=== PATIENT | female | born 1980 | race African-American/Black ===

== ENCOUNTER 2016-05-27 19:55 | Emergency (ER) | payer MEDICAID ==
[~2016-05-27] VITALS: Ht 170.2 cm; Wt 56.7 kg
[~2016-05-27 19:55] MED LIST: ALBUTEROL SULF8.5 GM INH; PREDNISONE20 MG ORAL; VENTOLIN HFA18 GM INH
[2016-05-27] MEDS ORDERED: Albuterol ud Inhalation HHN ONE ×2 (20:30→21:15)
[2016-05-27] MEDS ORDERED: PredniSONE 20mg tab ORAL ONE (20:30)
[2016-05-27] MEDS ORDERED: Ipratropium 0.02% Inh Soln 2.5ml UD HHN ONE (20:30)
[2016-05-27 21:30] VITALS: BP 124/75
[2016-05-27] MEDS ORDERED: Acetaminophen 500mg (ES) tab ORAL ONE (22:15)
--- NOTE | 2016-05-27 22:18 | Emergency Room Report ---
History of Present Illness General Chief Complaint: Dyspnea/Respdistress Source: Patient Present Illness HPI Patient has a history of asthma. She states that she has had URI symptoms for the past daily. She states over the past 24 hours her asthma has been out of control. She states that she has been using her albuterol inhaler without relief. She has had congestion and sputum production. She denies fever or chills. She does have chest pain with coughing. She has no other complaints. Allergies: Coded Allergies: No Known Allergies (Unverified , 03/20/16) Patient History Past Medical History: see triage record, asthma Social History: Denies: alcohol use, drug use, smoking Last Menstrual Period: 05/27/16 Now: No Reviewed Nursing Documentation: PMH: Agreed, PSxH: Agreed Nursing Documentation-PMH Hx Asthma: Yes Review of Systems All Other Systems: negative except mentioned in HPI Physical Exam Vital Signs Date Time Temp Pulse Resp B/P Pulse Ox O2 Delivery O2 Flow Rate FiO2 05/27/16 20:00 98.1 84 22 118/64 96 Room Air Sp02 EP Interpretation: reviewed, normal General Appearance: no apparent distress, alert, GCS 15, non-toxic Head: normocephalic, atraumatic Eyes: bilateral eye PERRL, bilateral eye normal inspection ENT: hearing grossly normal, normal pharynx, no angioedema, normal voice Neck: full range of motion, supple/symm/no masses Respiratory: chest non-tender, no respiratory distress, no retraction, no accessory muscle use, speaking full sentences, wheezing, expiration Cardiovascular #1: regular rate, rhythm, no edema Gastrointestinal: normal bowel sounds, non tender, soft, non-distended, no guarding, no rebound Rectal: deferred Musculoskeletal: back normal, gait/station normal, normal range of motion, non- tender Neurologic: alert, oriented x3, responsive, motor strength/tone normal, sensory intact, speech normal Psychiatric: judgement/insight normal, memory normal, mood/affect normal, no suicidal/homicidal ideation Skin: normal color, no rash, warm/dry, well hydrated Medical Decision Making Diagnostic Impression: Primary Impression: Asthma ER Course This patient has a clinical presentation consistent with asthma exacerbation. Patient has a history of asthma and has wheezing on physical exam. The patient was given albuterol and Atrovent nebulizer treatments. The patient was also given prednisone orally. The patient had significant improvement in subjective shortness of breath. The patient's lung exam improved significantly. I will also treat the patient with a course of antibiotics as this has been shown to improve the course of an asthma exacerbation. The patient was given close return precautions and followup instructions. Last Vital Signs Date Time Temp Pulse Resp B/P Pulse Ox O2 Delivery O2 Flow Rate FiO2 05/27/16 21:38 123 23 100 05/27/16 21:30 98.0 124/75 Room Air Status: improved Disposition: HOME, SELF-CARE Condition: Improved Referrals: [facility]ERR[facility] (PCP) JEROMY PALMER D.O. May 27, 2016 22:18
[2016-05-27] MEDS ORDERED: ZITHROMAX250 MG ORAL (22:36)
[2016-05-27] MEDS ORDERED: PREDNISONE20 MG ORAL (22:36)
[2016-05-27] MEDS ORDERED: ALBUTEROL2.5 MG/3 M HHN (22:36)
[2016-05-27] MEDS ORDERED: ALBUTEROL SULF8.5 GM INH (22:36)
[2016-05-27 22:45] VITALS: BP 113/65
== END 2016-05-27 22:50 | disposition home or self-care (01) ==
LOC: EMR 20:50
DX: J45.909 Unspecified asthma, uncomplicated (principal)
CPT/HCPCS: 94640; 94664; 99283

== ENCOUNTER 2016-08-14 05:54 | Emergency (ER) | payer MEDICAID ==
[~2016-08-14] VITALS: Ht 170.2 cm; Wt 56.7 kg
[~2016-08-14 05:54] MED LIST changes: +ALBUTEROL2.5 MG/3 M HHN; +ZITHROMAX250 MG ORAL
[2016-08-14 05:58] VITALS: BP 98/78
[2016-08-14] MEDS ORDERED: Ipratropium 0.02% Inh Soln 2.5ml UD HHN ONE (06:00)
[2016-08-14] MEDS ORDERED: Solu-MEDROL 125mg Inj IVP ONE (06:00)
[2016-08-14] MEDS ORDERED: Albuterol ud Inhalation HHN ONE (06:00)
[2016-08-14] MEDS ORDERED: PREDNISONE20 MG ORAL (06:37)
[2016-08-14] MEDS ORDERED: ALBUTEROL SULF8.5 GM INH (06:37)
[2016-08-14] MEDS ORDERED: DULERA 200 MCG/13 GM IH (06:39)
--- NOTE | 2016-08-14 06:39 | Emergency Room Report ---
History of Present Illness General Chief Complaint: Dyspnea/Respdistress Source: Patient Present Illness HPI Is a 35-year-old female with history of asthma. Is well-controlled when she was in [place] now since she grew back to [place] his been having more asthma attack. Only using albuterol. She's been having for asthma exacerbation. Worse the last few days. Her inhaler is not helping. Denies any fever chills denies any nausea vomiting. Coughing with whitish sputum. Allergies: Coded Allergies: No Known Allergies (Unverified , 03/20/16) Patient History Past Medical History: see triage record, old chart reviewed, asthma Past Surgical History: none Pertinent Family History: none Social History: Denies: smoking - quit last month Last Menstrual Period: 08/11/16 Now: No : 1 Para: 1 Immunizations: other Reviewed Nursing Documentation: PMH: Agreed, PSxH: Agreed Nursing Documentation-PMH Hx Asthma: Yes Review of Systems Eye: Denies: blurred vision, eye pain ENT: Denies: ear pain, nose congestion, throat swelling Respiratory: Reports: shortness of breath, wheezing, Denies: cough Cardiovascular: Denies: chest pain, palpitations Gastrointestinal: Denies: abdominal pain, diarrhea, nausea, vomiting Musculoskeletal: Denies: back pain, joint pain Skin: Denies: rash Neurological: Denies: headache, numbness Endocrine: Denies: increased thirst, increased urine Hematologic/Lymphatic: Denies: easy bruising All Other Systems: negative except mentioned in HPI Physical Exam Vital Signs Date Time Temp Pulse Resp B/P Pulse Ox O2 Delivery O2 Flow Rate FiO2 08/14/16 05:58 97.9 79 20 98/78 100 Room Air vitals unremarkable. Sp02 EP Interpretation: reviewed, normal General Appearance: well appearing, alert, mild distress Head: normocephalic, atraumatic Eyes: bilateral eye EOMI, bilateral eye PERRL ENT: hearing grossly normal, normal pharynx Neck: full range of motion, supple, no meningismus Respiratory: chest non-tender, accessory muscle use, wheezing Cardiovascular #1: regular rate, rhythm, no murmur Gastrointestinal: normal bowel sounds, non tender, no mass, no organomegaly, no bruit, non-distended Musculoskeletal: back normal, gait/station normal, normal range of motion Neurologic: alert, oriented x3 Psychiatric: mood/affect normal Skin: warm/dry Medical Decision Making Diagnostic Impression: Primary Impression: Asthma with exacerbation Qualified Codes: J45.41 - Moderate persistent asthma with (acute) exacerbation ER Course Patient with asthma exacerbation. She cleared after treatment. No evidence of pneumonia. No evidence of CHF. No evidence of PE. She will probably benefit from a steroid inhaler. We'll discharge home. EKG Diagnostic Results Rate: normal Rhythm: NSR ST Segments: no acute changes Rhythm Strip Diag. Results EP Interpretation: yes Rate: 70 Rhythm: NSR, no PVC's, no ectopy Last Vital Signs Date Time Temp Pulse Resp B/P Pulse Ox O2 Delivery O2 Flow Rate FiO2 08/14/16 06:04 77 20 100 Room Air 08/14/16 05:58 97.9 98/78 Status: improved Disposition: HOME, SELF-CARE Condition: Stable Scripts Mometasone/Formoterol (DULERA 200 MCG/5 MCG INHALER) 13 Gm Hfa.aer.ad 13 GM IH DAILY, #1 UNIT Prov: PEPE JOHNSON M.D. 08/14/16 Prednisone* (PREDNISONE*) 20 Mg Tablet 60 MG ORAL DAILY, #15 TAB Prov: PEPE JOHNSON M.D. 08/14/16 Albuterol Sulfate* (ALBUTEROL SULFATE MDI*) 8.5 Gm Hfa.aer.ad 2 PUFF INH Q4H Y for cough/wheezing, #1 EA 0 Refills Prov: PEPE JOHNSON M.D. 08/14/16 Additional Instructions: Followup with your DrNick in 2-3 days. Return if symptom worsen. PEPE JOHNSON M.D. Aug 14, 2016 06:39
[2016-08-14 06:45] VITALS: BP 110/78
--- NOTE | 2016-08-15 18:33 | Cardiology Report ---
APPROVED REPORT EKG Measurement Heart [id number] Normal sinus rhythm Normal ECG
== END 2016-08-14 06:51 | disposition home or self-care (01) ==
LOC: EMR 06:15
DX: J45.901 Unspecified asthma with (acute) exacerbation (principal)
CPT/HCPCS: 93005; 94640; 94664; 96374; 99284; J2930

== ENCOUNTER 2017-04-09 09:25 | Emergency (ER) | payer MEDICAID ==
[~2017-04-09] VITALS: Ht 170.2 cm; Wt 56.7 kg
[~2017-04-09 09:25] MED LIST changes: +DULERA 200 MCG/13 GM IH
--- NOTE | 2017-04-09 09:50 | Emergency Room Report ---
History of Present Illness General Chief Complaint: Abdominal Pain Source: Patient Present Illness HPI This is a 28-year-old female presented after increased lower bowel pain and cramping. A computed present for 3 days. She denied vomiting. She reports having increased dysuria. The patient states that she had not been bleeding. She had regular menses approximately 3 weeks ago. She denies any fever. She denies vaginal discharge. Patient states that she has no prior abdominal surgery. The patient has prior history of asthma but denies any current symptoms Allergies: Coded Allergies: No Known Allergies (Unverified , 03/20/16) Patient History Last Menstrual Period: 03/16/2017 Reviewed Nursing Documentation: PMH: Agreed, PSxH: Agreed Nursing Documentation-PMH Past Medical History: No History, Except For Hx Asthma: Yes Review of Systems All Other Systems: negative except mentioned in HPI Physical Exam Vital Signs Date Time Temp Pulse Resp B/P (MAP) Pulse Ox O2 Delivery O2 Flow Rate FiO2 04/09/17 09:33 98.1 73 14 92/54 100 Room Air Sp02 EP Interpretation: reviewed, normal General Appearance: normal inspection, well appearing, no apparent distress, alert, GCS 15, non-toxic Head: atraumatic ENT: normal ENT inspection, hearing grossly normal, normal voice Neck: normal inspection, full range of motion, supple, no bony tend Respiratory: normal inspection, lungs clear, normal breath sounds, no respiratory distress, no retraction, no wheezing Cardiovascular #1: regular rate, rhythm, no edema Gastrointestinal: normal inspection, normal bowel sounds, non tender, soft, no guarding, no hernia Genitourinary: no CVA tenderness Musculoskeletal: normal inspection, back normal, normal range of motion Neurologic: normal inspection, alert, oriented x3, responsive, promotions representative III-XII nml as tested, speech normal Psychiatric: normal inspection, judgement/insight normal, mood/affect normal Skin: normal inspection, normal color, no rash Medical Decision Making Diagnostic Impression: Primary Impression: Abdominal pain ER Course Patient presented for abdominal pain. Differential diagnoses included ischemic bowel, appendicitis, perforated viscus, abdominal aortic aneurysm, inferior myocardial infarction, viral gastroenteritis Patient's benign exam and does not appear to require any further imaging or laboratory testing at this time. The patient is advised to follow up with primary care doctor in 1-2 days. Patient is advised to return if any worsening condition or if any changes in status that are concerning. Labs Test 04/09/17 09:45 Urine Color Pale yellow Urine Appearance Clear Urine pH 6 (4.5-8.0) Urine Specific [place] 1.015 (1.005-1.035) Urine Protein Negative (NEGATIVE) Urine Glucose (UA) Negative (NEGATIVE) Urine Ketones Negative (NEGATIVE) Urine Occult Blood Negative (NEGATIVE) Urine Nitrite Negative (NEGATIVE) Urine Bilirubin Negative (NEGATIVE) Urine Urobilinogen Normal MG/DL (0.0-1.0) Urine Leukocyte Esterase Negative (NEGATIVE) Urine HCG, Qualitative Negative Last Vital Signs Date Time Temp Pulse Resp B/P (MAP) Pulse Ox O2 Delivery O2 Flow Rate FiO2 04/09/17 09:33 98.1 73 14 92/54 100 Room Air Status: improved Disposition: HOME, SELF-CARE Condition: Stable Scripts Lidocaine (Lidocaine) 1 Each Adh..patch 700 MG TP DAILY, #7 PATCH Prov: Estevan Flores 04/09/17 Estevan Flores Apr 09, 2017 09:50
[2017-04-09 09:55] VITALS: BP 115/70
[2017-04-09 10:09] LABS: APPEARANCE,URINE CLEAR; KETONES,URINE NEGATIVE (NEGATIVE); LEUKOCYTE ESTERASE ,URINE NEGATIVE (NEGATIVE); NITRITE,URINE NEGATIVE (NEGATIVE); PH,URINE 6 (4.5-8.0); PROTEIN,URINE NEGATIVE (NEGATIVE); UROBILINOGEN,URINE NORMAL MG/DL (0.0-1.0)
[2017-04-09] MEDS ORDERED: Dicyclomine HCl 10mg/5ml oral soln ORAL ONE (11:00)
[2017-04-09] MEDS ORDERED: LIDOCAINE700 M1 TP (11:12)
[2017-04-09 11:32] VITALS: BP 115/70
== END 2017-04-09 11:57 | disposition home or self-care (01) ==
LOC: EMR 10:12
DX: R10.30 Lower abdominal pain, unspecified (principal); J45.909 Unspecified asthma, uncomplicated
CPT/HCPCS: 81003; 81025; 99283

== ENCOUNTER 2017-08-02 04:24 | Emergency (ER) | payer MEDICAID ==
[~2017-08-02] VITALS: Ht 170.2 cm; Wt 59.0 kg
[~2017-08-02 04:24] MED LIST changes: +LIDOCAINE700 M1 TP
[2017-08-02 04:42] VITALS: BP 106/63
[2017-08-02] MEDS ORDERED: Albuterol/Ipratropium 3ml neb HHN ONE (04:45)
--- NOTE | 2017-08-02 04:51 | Emergency Room Report ---
History of Present Illness General Chief Complaint: Dyspnea/Respdistress Source: Patient Present Illness HPI Is a 36-year-old female with a history of asthma with frequent hospital visits for asthma exacerbation and also admission. Never been intubated. Patient presents with chief complaint of shortness of breath. Onset today. Increase use of Advair inhaler without much relief. No nausea no vomiting. No fever chills. Worse with exertion. No chest pain. Allergies: Coded Allergies: No Known Allergies (Unverified , 03/20/16) Patient History Past Medical History: see triage record, old chart reviewed, asthma Past Surgical History: none Pertinent Family History: none Social History: Denies: smoking Last Menstrual Period: 3 days ago Now: No Immunizations: other Reviewed Nursing Documentation: PMH: Agreed, PSxH: Agreed Nursing Documentation-PMH Hx Asthma: Yes Review of Systems Eye: Denies: eye pain, blurred vision ENT: Denies: ear pain, nose congestion, throat swelling Respiratory: Reports: shortness of breath, wheezing, Denies: cough Cardiovascular: Denies: chest pain, palpitations Gastrointestinal: Denies: abdominal pain, diarrhea, nausea, vomiting Musculoskeletal: Denies: back pain, joint pain Skin: Denies: rash Neurological: Denies: headache, numbness Endocrine: Denies: increased thirst, increased urine Hematologic/Lymphatic: Denies: easy bruising All Other Systems: negative except mentioned in HPI Physical Exam Vital Signs Date Time Temp Pulse Resp B/P (MAP) Pulse Ox O2 Delivery O2 Flow Rate FiO2 08/02/17 04:27 97.6 76 18 106/63 97 Room Air 97.5 vitals normal Sp02 EP Interpretation: reviewed, normal General Appearance: well appearing, no apparent distress, alert, mild distress Head: normocephalic, atraumatic Eyes: bilateral eye PERRL, bilateral eye EOMI ENT: hearing grossly normal, normal pharynx Neck: full range of motion, supple, no meningismus Respiratory: chest non-tender, respiratory distress, decreased breath sounds, accessory muscle use, wheezing Cardiovascular #1: regular rate, rhythm, no murmur Gastrointestinal: normal bowel sounds, non tender, no mass, no organomegaly, no bruit, non-distended Musculoskeletal: back normal, gait/station normal, normal range of motion Psychiatric: mood/affect normal Skin: warm/dry Medical Decision Making Diagnostic Impression: Primary Impression: Asthma with exacerbation Qualified Codes: J45.901 - Unspecified asthma with (acute) exacerbation ER Course Patient with an asthma exacerbation. She cleared after breathing treatment and steroid. Said she is back to baseline. No evidence of PE, ACS, pneumonia to name a few. We'll discharge home. Last Vital Signs Date Time Temp Pulse Resp B/P (MAP) Pulse Ox O2 Delivery O2 Flow Rate FiO2 08/02/17 04:46 63 18 Room Air 08/02/17 04:45 99 08/02/17 04:42 97.5 106/63 97.5 Status: improved Disposition: HOME, SELF-CARE Condition: Stable Scripts Prednisone* (PREDNISONE*) 20 Mg Tablet 60 MG ORAL DAILY, #12 TAB Prov: PEPE JOHNSON M.D. 08/02/17 Albuterol Sulfate* (ALBUTEROL SULFATE MDI*) 8.5 Gm Hfa.aer.ad 2 PUFF INH Q4H Y for cough/wheezing, #1 EA 0 Refills Prov: PEPE JOHNSON M.D. 08/02/17 Additional Instructions: Follow-up with your DrNick in 2 to 3 days. Return if symptom worsen. PEPE JOHNSON M.D. Aug 02, 2017 04:51
[2017-08-02] MEDS ORDERED: PREDNISONE20 MG ORAL (05:34)
[2017-08-02] MEDS ORDERED: ALBUTEROL SULF8.5 GM INH (05:34)
[2017-08-02 05:45] VITALS: BP 106/63
== END 2017-08-02 05:45 | disposition home or self-care (01) ==
LOC: EMR 05:00
DX: J45.901 Unspecified asthma with (acute) exacerbation (principal)
CPT/HCPCS: 94640; 94664; 99284; J7512; J7620

== ENCOUNTER 2018-07-16 05:36 | Emergency (ER) | payer MEDICAID ==
[~2018-07-16] VITALS: Ht 170.2 cm; Wt 59.0 kg
[2018-07-16] MEDS ORDERED: Ipratropium 0.02% Inh Soln 2.5ml UD HHN ONE (05:45)
[2018-07-16] MEDS ORDERED: Solu-MEDROL 125mg Inj IVP ONE (05:45)
[2018-07-16] MEDS ORDERED: Albuterol ud Inhalation HHN ONE (05:45)
[2018-07-16 06:00] VITALS: BP 145/95
--- NOTE | 2018-07-16 06:35 | Emergency Room Report ---
History of Present Illness General Chief Complaint: Asthma Source: Patient Present Illness HPI Is a 37-year-old female with a history of asthma. Is usually well controlled. Patient presents with chief complaint short of breath and wheezing. She woke up with it. Nothing made it better. Her inhaler did not make it any better. Exertion and inspiration makes it worse. Denies fever or chills. Because of her coughing and wheezing she has some tightness to her left chest. Sharp pain. Worse with coughing. No radiation. EMS gave her breathing treatment. Allergies: Coded Allergies: No Known Allergies (Unverified , 03/20/16) Patient History Past Medical History: see triage record, old chart reviewed, asthma Past Surgical History: none Pertinent Family History: none Social History: Reports: drug use - Marijuana; Denies: smoking Last Menstrual Period: Jun 29 2018 Now: No Immunizations: other Reviewed Nursing Documentation: PMH: Agreed; PSxH: Agreed Nursing Documentation-PMH Hx Asthma: Yes Review of Systems Eye: Denies: eye pain, blurred vision ENT: Denies: ear pain, nose congestion, throat swelling Respiratory: Reports: cough, shortness of breath, wheezing Cardiovascular: Reports: chest pain; Denies: palpitations Gastrointestinal: Denies: abdominal pain, diarrhea, nausea, vomiting Musculoskeletal: Denies: back pain, joint pain Skin: Denies: rash Neurological: Denies: headache, numbness Endocrine: Denies: increased thirst, increased urine Hematologic/Lymphatic: Denies: easy bruising All Other Systems: negative except mentioned in HPI Physical Exam Vital Signs Date Time Temp Pulse Resp B/P (MAP) Pulse Ox O2 Delivery O2 Flow Rate FiO2 07/16/18 05:39 98.1 108 22 145/95 100 Simple Mask 07/16/18 05:45 21 vitals with tachycardia Sp02 EP Interpretation: reviewed, normal General Appearance: well appearing, no apparent distress, alert Head: normocephalic, atraumatic Eyes: bilateral eye PERRL, bilateral eye EOMI ENT: hearing grossly normal, normal pharynx Neck: full range of motion, supple, no meningismus Respiratory: chest non-tender, respiratory distress - mild, decreased breath sounds, accessory muscle use, wheezing Cardiovascular #1: regular rate, rhythm, no murmur Gastrointestinal: normal bowel sounds, non tender, no mass, no organomegaly, no bruit, non-distended Musculoskeletal: back normal, gait/station normal, normal range of motion Psychiatric: mood/affect normal Skin: warm/dry Medical Decision Making Diagnostic Impression: Primary Impression: Asthma attack Qualified Codes: J45.21 - Mild intermittent asthma with (acute) exacerbation ER Course Patient presents with asthma exacerbation. She felt much better now after breathing treatment and steroid. No evidence of ACS, PE, dissection to name a few. We'll discharge home. Chest X-Ray Diagnostic Results Chest X-Ray Diagnostic Results : Chest X-Ray Ordered: Yes # of Views/Limited/Complete: 1 View Indication: Shortness of Breath EP Interpretation: Yes Interpretation: no consolidation, no effusion, no pneumothorax, no acute cardiopulmonary disease Impression: No acute disease Electronically Signed by: Ever Yang MD Last Vital Signs Date Time Temp Pulse Resp B/P (MAP) Pulse Ox O2 Delivery O2 Flow Rate FiO2 07/16/18 06:11 84 20 100 Room Air 21 07/16/18 05:39 98.1 145/95 Status: improved Disposition: HOME, SELF-CARE Condition: Stable Scripts Prednisone* (PREDNISONE*) 20 Mg Tablet 40 MG ORAL DAILY, #8 TAB Prov: Ever Yang MD 07/16/18 Referrals: [facility],REFERRING (PCP) Patient Instructions: Asthma, Adult Additional Instructions: Follow-up with your in 2-3 days. Return if symptom worsen. Ever Yang MD Jul 16, 2018 06:35
[2018-07-16] MEDS ORDERED: PREDNISONE20 MG ORAL (06:39)
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
[2018-07-16] MEDS ORDERED: Morphine Sulfate 2mg/ml Inj(IV/IM USE ONLY) IM ONE (06:45)
[2018-07-16] MEDS ORDERED: ALBUTEROL SULF8.5 GM INH (07:11)
[2018-07-16 07:16] VITALS: BP 145/95
--- NOTE | 2018-07-16 09:08 | Diagnostic Imaging Report ---
Indication: Shortness of breath Technique: One view of the chest Comparison: none Findings: Lungs and pleural spaces are clear. Heart size is normal Impression: No acute process
== END 2018-07-16 07:17 | disposition home or self-care (01) ==
LOC: EDBD 05:36 → EDUNIT# 05:36 → EMR 06:12
DX: J45.21 Mild intermittent asthma with (acute) exacerbation (principal)
CPT/HCPCS: 71045; 94640; 94664; 96372; 96374; 99284; J2270; J7512

== ENCOUNTER 2018-11-15 11:48 | Emergency (ER) | payer MEDICAID ==
[~2018-11-15] VITALS: Ht 170.2 cm; Wt 61.2 kg
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
[2018-11-15 12:20] VITALS: BP 112/68
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
[2018-11-15] MEDS ORDERED: NAPROXEN500 M2 ORAL (12:28)
[2018-11-15] MEDS ORDERED: ROBAXIN500 MG PO (12:28)
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
[2018-11-15 12:44] VITALS: BP 112/68
--- NOTE | 2018-11-15 12:46 | NUR ---
ER DISCHARGE NOTE: Patient is cleared to be discharged per ERMD, pt is aox4, on room air, with stable vital signs. pt was given dc and prescription instructions, pt was able to verbalize understanding, pt is able to ambulate with steady gait. pt took all belongings.
== END 2018-11-15 12:35 | disposition home or self-care (01) ==
LOC: EMR 12:17
DX: S16.1XXA Strain of muscle, fascia and tendon at neck level, initial encounter (principal); V43.62XA Car passenger injured in collision with other type car in traffic accident, initial encounter; Y92.410 Unspecified street and highway as the place of occurrence of the external cause
CPT/HCPCS: 99282

== ENCOUNTER 2019-07-03 21:40 | Emergency (ER) | payer MEDICAID ==
[~2019-07-03] VITALS: Ht 167.6 cm; Wt 59.0 kg
[~2019-07-03 21:40] MED LIST changes: +NAPROXEN500 M2 ORAL; +ROBAXIN500 MG PO
[2019-07-03 21:56] VITALS: BP 105/73
--- NOTE | 2019-07-03 21:56 | NUR ---
ED Nurse Note: Pt walked in to ED c/o asthma exacerbation today at 2100. Stated she forgot her inhaler. Able to speak 1-2 word sentences. 98% RA.
--- NOTE | 2019-07-03 21:58 | NUR ---
ED Nurse Note: RT at bedside for breathing tx.
[2019-07-03] MEDS: Ipratropium 0.02% Inh Soln 2.5ml UD HHN SCH ×3 (22:03→22:30)
[2019-07-03] MEDS: Albuterol ud Inhalation HHN SCH ×3 (22:03→22:30)
[2019-07-03] MEDS ORDERED: ALBUTEROL SULF8.5 GM INH (22:46)
[2019-07-03] MEDS ORDERED: PREDNISONE20 MG ORAL (22:46)
[2019-07-03 22:55] VITALS: BP 105/73
--- NOTE | 2019-07-03 22:55 | NUR ---
ED Nurse Note: Pt cleared by ERMD for discharge. DC instructions/prescription was given and explained to pt and verbalized understanding of teachings. All medical deviecs such as ID band removed. Pt is AAO x4, ambulatory and left with all personal belongings.
--- NOTE | 2019-07-04 03:52 | Emergency Room Report ---
History of Present Illness General Chief Complaint: Asthma Source: Patient Present Illness HPI 38-year-old female presents ED for evaluation. Complaining of shortness of breath since last night. History of asthma. Cannot find her inhaler. Denies cough. Denies fevers or chills. Denies smoking. No other aggravating relieving factors. Denies any other associated symptoms Allergies: Coded Allergies: No Known Allergies (Unverified , 03/20/16) Patient History Past Medical History: asthma Past Surgical History: none Pertinent Family History: none Social History: Denies: smoking, alcohol use, drug use Last Menstrual Period: 06/27/19 Now: No Immunizations: UTD Reviewed Nursing Documentation: PMH: Agreed; PSxH: Agreed Nursing Documentation-PMH Past Medical History: No History, Except For Hx Asthma: Yes Review of Systems All Other Systems: negative except mentioned in HPI Physical Exam Vital Signs Date Time Temp Pulse Resp B/P (MAP) Pulse Ox O2 Delivery O2 Flow Rate FiO2 07/03/19 21:48 97.9 88 30 105/73 (84) 100 Room Air 07/03/19 22:03 21 Sp02 EP Interpretation: reviewed, normal General Appearance: alert, GCS 15, non-toxic, mild distress Head: normocephalic, atraumatic Eyes: bilateral eye normal inspection, bilateral eye PERRL ENT: hearing grossly normal, normal pharynx, no angioedema, normal voice Neck: full range of motion, supple/symm/no masses Respiratory: chest non-tender, lungs clear, decreased breath sounds, speaking full sentences, wheezing Cardiovascular #1: regular rate, rhythm, no edema Cardiovascular #2: 2+ carotid (R), 2+ carotid (L), 2+ radial (R), 2+ radial (L) , 2+ dorsalis pedis (R), 2+ dorsalis pedis (L) Gastrointestinal: normal bowel sounds, non tender, soft, non-distended, no guarding, no rebound Rectal: deferred Genitourinary: normal inspection, no CVA tenderness Musculoskeletal: back normal, normal range of motion, gait/station normal, non- tender Neurologic: alert, motor strength/tone normal, oriented x3, sensory intact, responsive, speech normal Psychiatric: judgement/insight normal, memory normal, mood/affect normal, no suicidal/homicidal ideation Reflexes: 3+ bicep (R), 3+ bicep (L), 3+ tricep (R), 3+ tricep (L), 3+ knee (R) , 3+ knee (L) Skin: no rash Lymphatic: no adenopathy Procedures Critical Care Time Critical Care Time i. I feel this is a highly complex case requiring extensive working including EKG/Rhythm strip, Xray/CT/US, Blood/urine lab work, repeat exams while in ED, and administration of strong opiates/narcotics for pain control, admission to hospital or close patient follow up. Total time: 30 min bedside evaluation and treatment excludes procedures (EKG). Reason for critical care: tachypnea, wheezing Possible complications: hypotension, hypertension, MA, shock, arrhythmias, metabolic acidosis, end organ damage, respiratory failure. Interventions: nebulizer treatments, prednisone Course: Patient presenting with shortness of breath. Asthma. Tachypneic. Patient started on breathing treatments, prednisone. Patient observed with close assessments. On reassessment breathing improved. Wheezing resolved. Tachypnea resolved. Will discharge home. Consultations: nursing staff, EMS, family Performed by: Dr Starr Tolerated well condition = stable j. because of unstable vital signs this patient had a condition that could potentially threaten life or limb. I feel this is a critical patient who required my full attention while patient was considered critical. Total Critical Care Time excluding procedures was greater than 35 minutes Medical Decision Making Diagnostic Impression: Primary Impression: Asthma attack Qualified Codes: J45.901 - Unspecified asthma with (acute) exacerbation ER Course Hospital Course 38-year-old female presents to ED complaining of SOB, wheezing Differential diagnoses include: URI, bronchitis, asthma/COPD, pneumonia Clinical course Patient placed on stretcher. After initial history, physical exam reveals a female in mild distress. Bilateral TM unremarkable. No pharyngeal erythema. No tonsillar exudates. No lymphadenopathy. wheezing noted on exam. 1-2 word sentences. Tachypneic. Patient given Prednisone and albuterol treatment in ED. close observation. Repeat assessments made. After treatment patient breath sounds improved. Wheezing resolved. Vitals improved. No longer tachypneic. Discussed findings with patient. Will discharge home with inhaler and steroids. Safe for discharge for close outpatient follow-up. I will provide referrals Diagnosis - asthma Stable and discharged home with prescriptions for prednisone, albuterol inhaler. Instructed to followup with PMD. Return to ED if symptoms recur or worsen Last Vital Signs Date Time Temp Pulse Resp B/P (MAP) Pulse Ox O2 Delivery O2 Flow Rate FiO2 07/03/19 22:55 97.9 88 22 105/73 100 Room Air 21 Status: improved Disposition: HOME, SELF-CARE Condition: Stable Scripts Prednisone* (PREDNISONE*) 20 Mg Tablet 40 MG ORAL DAILY, #10 TAB Prov: Luca Starr MD 07/03/19 Albuterol Sulfate* (ALBUTEROL SULFATE MDI*) 8.5 Gm Hfa.aer.ad 2 PUFF INH Q4H PRN for cough/wheezing, #1 EA 0 Refills Prov: Luca Starr MD 07/03/19 Referrals: NOT CHOSEN IPA/,REFERRING (PCP) [facility] Patient Instructions: Asthma, Adult Luca Starr MD Jul 04, 2019 03:52
== END 2019-07-03 22:55 | disposition home or self-care (01) ==
LOC: EMR 22:54
DX: J45.901 Unspecified asthma with (acute) exacerbation (principal)
CPT/HCPCS: J7512; Z7502; 99284